=== PATIENT | female | born 1980 | race Caucasian/White ===

== ENCOUNTER 2016-09-16 13:23 | Emergency (ER) | payer MEDICAID ==
[2016-09-16] MEDS ORDERED: OPTIRAY 350 100 ML VIAL HMH IV ONE (13:24)
[2016-09-16] MEDS ORDERED: SODIUM CHLORIDE 0.9% 1,000 ML ONE (19:47)
== END 2016-09-16 22:11 | disposition home or self-care (01) ==
LOC: ER 13:23
DX: R10.31 Right lower quadrant pain (principal); R19.7 Diarrhea, unspecified
CPT/HCPCS: 36415; 74177; 80053; 81003; 83690; 85025; 96360; 96361